=== PATIENT | female | born 1995 ===

== ENCOUNTER 2017-10-06 07:00 | Inpatient (IN) | payer OTHER ==
[~2017-10-06] VITALS: Ht 165.1 cm; Wt 62.6 kg
[~2017-10-06 07:00] MED LIST: PRENATAL 19 TA1 EAC1; PRENATAL TABLE1 EAC1
== END 2017-10-09 11:06 | disposition home or self-care (01) | DRG 766 ==
LOC: OB/GYN 07:00 → O/R 07:10 → OB/GYN 14:30
PROC: 4A1HXCZ Monitoring of Products of Conception, Cardiac Rate, External Approach (ICD-10-PCS; 2017-10-06)
PROC: 10D00Z1 Extraction of Products of Conception, Low, Open Approach (ICD-10-PCS; principal; 2017-10-07)
PROC: 0DNW0ZZ Release Peritoneum, Open Approach (ICD-10-PCS; 2017-10-07)
PROC: 0UT70ZZ Resection of Bilateral Fallopian Tubes, Open Approach (ICD-10-PCS; 2017-10-07)
DX: O34.211 Maternal care for low transverse scar from previous cesarean delivery (principal); Z30.2 Encounter for sterilization; Z64.1 Problems related to multiparity; O99.02 Anemia complicating childbirth; Z3A.39 39 weeks gestation of pregnancy; Z37.0 Single live birth; O99.613 Diseases of the digestive system complicating pregnancy, third trimester; K66.0 Peritoneal adhesions (postprocedural) (postinfection)